=== PATIENT | female | born 1960 | race Caucasian/White ===

== ENCOUNTER → 2018-08-01 10:54 | Outpatient (CLI) | payer BC, SELFPAY ==
--- NOTE | 2018-08-01 11:02 | MM_ITS ---
MM Dig screening mamm BI w/CAD ORDERING PHYSICIAN : Merissa London PATIENT AGE: 57 years GENDER: Female COMPARISON: July [id number]. INDICATION: ITS.REASON: SCREENING 57-year-old. No hormones. No new complaints. Family history. Paternal aunt with breast cancer TECHNIQUE: Standard CC and MLO images were obtained. R2 CAD reviewed. FINDINGS: Mild to moderate residual fibroglandular elements in both breasts. RIGHT BREAST:No new findings The mild asymmetric region towards upper-outer quadrant is stable LEFT BREAST no significant new findings.:A small stable area of density seen on cc view is unchanged since studies dating back to 2013 IMPRESSION: Stable bilateral mammogram with no significant new findings. Bilateral follow-up in one year is recommended BI-RADS Category: 2 Benign Finding(s) RECOMMENDED FOLLOW-UP: 1YR 1 YEAR FOLLOW-UP (A letter has been sent to the patient regarding results of the study.)
== END ==
PROVIDERS: PCP Nurse Practitioner Family; Visit Provider Nurse Practitioner Family
DX: Z12.31 Encounter for screening mammogram for malignant neoplasm of breast (principal)
CPT/HCPCS: 77067

== ENCOUNTER → 2019-08-02 11:02 | Outpatient (CLI) | payer BC, SELFPAY ==
--- NOTE | 2019-08-02 11:06 | MM_ITS ---
PROCEDURE: MM DIG SCREENING MAMM BI W/CAD Patient Age:58Y CLINICAL INDICATION: SCREENING but no hormones, no new complaints.. Family history. Paternal aunt with breast cancer. COMPARISON: [facility] DIG MAMM-SCREEN [facility] from 07/23/2014 [facility] DIG MAMM-SCREEN [facility] from 07/25/2015 [facility] DIG MAMM-SCREEN [facility] from 07/27/2016 [facility] DIG MAMM-SCREEN [facility] W/CAD from 07/29/2017 [facility] MM Dig screening mamm BI w/CAD from 08/01/2018 TECHNIQUE: Standard CC and MLO images were obtained. R2 CAD reviewed. CC nipple profile view left and right breast additional left MLO view in nipple profile also included a FINDINGS: . [id number] density both breast. No new suspicious calcifications Right breast: Stable with no significant new findings. The asymmetric area of density towards deep lateral breast is longstanding and unchanged Left breast no new areas of significant concern. The CC nipple profile view is helpful and showing a stable appearance behind the nipple. Small focal area of density at the medial breast on CC view appears stable since at least 2014 IMPRESSION: Overall stable bilateral mammogram. No new areas of significant concern. Bilateral follow-up 1 year recommended, and would be encouraged for ongoing evaluation BI-RAD Category: 2 Benign Finding(s) FOLLOW-UP: 1YR 1 Year Follow-up (A letter has been sent to the patient regarding results of the study.) Dictated by: Ryan Mccarty MD 08/06/2019 09:54 Electronically signed by Ryan Mccarty MD in [place] 08/06/2019 09:54
== END ==
PROVIDERS: PCP Internal Medicine; Visit Provider Internal Medicine
DX: Z12.31 Encounter for screening mammogram for malignant neoplasm of breast (principal)
CPT/HCPCS: 77067

== ENCOUNTER → 2020-08-06 09:57 | Outpatient (CLI) | payer BC, SELFPAY ==
--- NOTE | 2020-08-06 10:00 | MM_ITS ---
PROCEDURE: MM DIG SCREENING MAMM BI W/CAD Digital Breast Tomosynthesis Included CLINICAL INDICATION: SCREENING There is a history of breast cancer in the patient's paternal aunt. COMPARISON: MG [facility] DIG MAMM-SCREEN [facility] W/CAD from 07/29/2017 MG [facility] MM Dig screening mamm BI w/CAD from 08/01/2018 MG MM DIG SCREENING MAMM BI W/CAD from 08/02/2019 TECHNIQUE: Standard CC and MLO images and 3D Tomosynthesis was obtained. R2 CAD reviewed. FINDINGS: Mild scattered fibroglandular densities are seen in both breast primarily upper outer quadrants. The findings are bilateral and symmetrical. There is a stable small asymmetric glandular element central portion right breast. There is no suspicious lesion and no suspicious microcalcifications. IMPRESSION: Fibrofatty parenchyma with no suspicious lesions seen BI-RAD Category: 1 Negative FOLLOW-UP: 1YR 1 Year Follow-up (A letter has been sent to the patient regarding results of the study.) Dictated by: Dr. Tico Walton MD 08/07/2020 16:31 Dr. Tico Walton MD in [place] 08/07/2020 16:31
== END ==
PROVIDERS: PCP Internal Medicine; Visit Provider Internal Medicine
DX: Z12.31 Encounter for screening mammogram for malignant neoplasm of breast (principal)
CPT/HCPCS: 77063; 77067

== ENCOUNTER → 2021-08-07 15:23 | Outpatient (CLI) | payer BC, SELFPAY ==
--- NOTE | 2021-08-07 15:25 | MM_ITS ---
PROCEDURE INFORMATION: Exam: MG Bilateral Screening 3D Mammography Exam date and time: 08/07/2021 3:25 PM Age: 60 years old Clinical indication: Encounter for screening mammogram for malignant neoplasm of breast TECHNIQUE: Imaging protocol: Bilateral screening tomosynthesis and 2D mammography including computer-aided detection (CAD) when performed. COMPARISON: 1. MG MM DIG SCREENING MAMM BI W/CAD 08/06/2020 10:02 AM 2. MG MM DIG SCREENING MAMM BI W/CAD 08/02/2019 11:10 AM FINDINGS: MAMMOGRAPHY: Breast composition: The breast tissue is composed of scattered areas of fibroglandular density. Mass: None. Architectural distortion: None. Calcifications: No suspicious calcifications. Asymmetric density: None. Skin thickening: None. Axillary adenopathy: None. IMPRESSION: No mammographic evidence of malignancy. Annual screening is recommended unless otherwise clinically indicated. ASSESSMENT: BI-RADS Category 1: Negative
== END ==
PROVIDERS: PCP Internal Medicine; Visit Provider Internal Medicine
DX: Z12.31 Encounter for screening mammogram for malignant neoplasm of breast (principal)
CPT/HCPCS: 77063; 77067

== ENCOUNTER → 2022-08-10 11:05 | Outpatient (CLI) | payer BC, SELFPAY ==
--- NOTE | 2022-08-10 11:09 | MM_ITS ---
PROCEDURE INFORMATION: Exam: MG Bilateral Screening 3D Mammography Exam date and time: 08/10/2022 11:03 AM Age: 61 years old Clinical indication: Screening examination TECHNIQUE: Imaging protocol: Bilateral Screening tomosynthesis and 2D mammography including computer-aided detection (CAD) when performed. COMPARISON: 1. MG MM DIG SCREENING MAMM BI W/CAD 08/07/2021 3:23 PM 2. MG MM DIG SCREENING MAMM BI W/CAD 08/06/2020 10:02 AM 3. MG MM DIG SCREENING MAMM BI W/CAD 08/02/2019 11:10 AM 4. MG [facility] MM Dig screening mamm BI w/CAD 08/01/2018 11:12 AM FINDINGS: MAMMOGRAPHY: Breast composition: There are scattered areas of fibroglandular density. Mass: Stable benign-appearing subcentimeter nodules are present in the right breast. No new or morphologically suspicious nodule has developed to suggest malignancy. Architectural distortion: No new or suspicious architectural distortion. Calcifications: No new or suspicious calcifications are present Asymmetric density: No new or suspicious asymmetric density is present Skin thickening: None. Axillary adenopathy: None. IMPRESSION: No mammographic evidence of malignancy. Recommend annual screening mammography unless otherwise clinically indicated. ASSESSMENT: BI-RADS category 2: Benign
== END ==
PROVIDERS: PCP Internal Medicine; Visit Provider Internal Medicine
DX: Z12.31 Encounter for screening mammogram for malignant neoplasm of breast (principal)
CPT/HCPCS: 77063; 77067

== ENCOUNTER → 2023-08-12 10:51 | Outpatient (CLI) | payer BC, SELFPAY ==
--- NOTE | 2023-08-12 10:56 | MM_ITS ---
PROCEDURE INFORMATION: Exam: MG Bilateral Screening 3D Mammography Exam date and time: 08/12/2023 10:43 AM Age: 62 years old Clinical indication: Screening examination TECHNIQUE: Imaging protocol: Bilateral Screening tomosynthesis and 2D mammography including computer-aided detection (CAD) when performed. COMPARISON: 1. MG MM DIG SCREENING MAMM BI W/CAD 08/10/2022 11:03 AM 2. MG MM DIG SCREENING MAMM BI W/CAD 08/07/2021 3:23 PM FINDINGS: MAMMOGRAPHY: Breast composition: There are scattered areas of fibroglandular density. Mass: None. Architectural distortion: None. Calcifications: No suspicious calcifications. Asymmetric density: None. Skin thickening: None. Axillary adenopathy: None. IMPRESSION: No mammographic evidence of malignancy. Annual screening is recommended unless otherwise clinically indicated. ASSESSMENT: BI-RADS Category 1: Negative
== END ==
PROVIDERS: PCP Internal Medicine; Visit Provider Internal Medicine
DX: Z12.31 Encounter for screening mammogram for malignant neoplasm of breast (principal)
CPT/HCPCS: 77063; 77067

== ENCOUNTER 2024-08-25 10:19 | Outpatient (CLI) | payer MEDICARE, SELFPAY ==
--- NOTE | 2024-08-25 10:20 | MM_ITS ---
PROCEDURE INFORMATION: Exam: MG Bilateral Screening 3D Mammography Exam date and time: 08/25/2024 10:06 AM Age: 63 years old Clinical indication: Screening examination TECHNIQUE: Imaging protocol: Bilateral Screening tomosynthesis and 2D mammography including computer-aided detection (CAD) when performed. COMPARISON: 1. MG MM DIG SCREENING MAMM BI W/CAD 08/12/2023 10:43 AM 2. MG MM DIG SCREENING MAMM BI W/CAD 08/10/2022 11:03 AM FINDINGS: MAMMOGRAPHY: Breast composition: There are scattered areas of fibroglandular density. Mass: None. Architectural distortion: None. Calcifications: No suspicious calcifications. Asymmetric density: None. Skin thickening: None. Axillary adenopathy: None. IMPRESSION: No mammographic evidence of malignancy. Annual screening is recommended unless otherwise clinically indicated. ASSESSMENT: BI-RADS Category 1: Negative.
== END 2024-08-25 23:59 | disposition home or self-care (01) ==
LOC: RAD 10:20
PROVIDERS: PCP Internal Medicine; Visit Provider Internal Medicine
DX: Z12.31 Encounter for screening mammogram for malignant neoplasm of breast (principal)
CPT/HCPCS: 77063; 77067

== ENCOUNTER 2025-09-03 14:45 | Outpatient (CLI) | payer MEDICARE, SELFPAY ==
--- NOTE | 2025-09-03 15:00 | MM_ITS ---
PROCEDURE INFORMATION: Exam: MG Bilateral Screening 3D Mammography Exam date and time: 09/03/2025 2:59 PM Age: 65 years old Clinical indication: Screening mammogram TECHNIQUE: Imaging protocol: Bilateral Screening tomosynthesis and 2D mammography including computer-aided detection (CAD) when performed. COMPARISON: MG MM DIG SCREENING MAMM BI W/CAD 08/12/2023 10:43 AM FINDINGS: MAMMOGRAPHY: Breast composition: There are scattered areas of fibroglandular density. Mass: None. Architectural distortion: No new or suspicious architectural distortion. Calcifications: No new or suspicious calcifications are present Asymmetric density: No new or suspicious asymmetric density is present Skin thickening: None. Axillary adenopathy: None. IMPRESSION: No mammographic evidence of malignancy. Recommend annual screening mammography unless otherwise clinically indicated. ASSESSMENT: BI-RADS category 1: Negative.
== END 2025-09-03 23:59 | disposition home or self-care (01) ==
LOC: RAD 14:45
PROVIDERS: PCP Internal Medicine; Visit Provider Internal Medicine
DX: Z12.31 Encounter for screening mammogram for malignant neoplasm of breast (principal); R92.323 Mammographic fibroglandular density, bilateral breasts
CPT/HCPCS: 77063; 77067